=== PATIENT | male | born 1995 | race Two or more races ===

== ENCOUNTER 2016-08-11 08:56 | Emergency (ER) | payer SELFPAY ==
[~2016-08-11] VITALS: Ht 170.2 cm; Wt 70.0 kg
[2016-08-11 08:59] VITALS: BP 119/70
== END 2016-08-11 10:46 | disposition home or self-care (01) ==
LOC: ER 08:57
DX: S40.212A Abrasion of left shoulder, initial encounter (principal); V49.59XA Passenger injured in collision with other motor vehicles in traffic accident, initial encounter; Y93.89 Activity, other specified; Y99.9 Unspecified external cause status; Y92.410 Unspecified street and highway as the place of occurrence of the external cause
CPT/HCPCS: 99283